=== PATIENT | female | born 1975 | race American Indian/Alaskan Native ===

== ENCOUNTER 2021-11-02 10:31 | Day surgery (SDC) | payer BC ==
[2021-10-31 12:28] LABS: Basophils % (Auto) 0.7 % (0.0-1.8); Eosinophils # (Auto) 0.2 K/mm3 (0.0-0.4); Eosinophils % (Auto) 4.3 % (0.0-4.3); Hematocrit 25.4 % (30.3-42.9); Hemoglobin 7.6 gm/dl (10.1-14.3); Lymphocytes % (Auto) 25.7 % (13.4-35.0); Mean Corpuscular HGB Conc 30 % (30-34); Monocytes # (Auto) 0.5 K/mm3 (0.0-0.8); Monocytes % (Auto) 11.7 % (0.0-7.3); Platelet Count 427 K/mm3 (140-440); Red Blood Count 4.23 M/mm3 (3.65-5.03)
[2021-10-31 12:32] LABS: Mean Corpuscular Volume 60 fl (79-97); Red Cell Distribution Width 22.1 % (13.2-15.2)
[2021-10-31 12:40] LABS: Blood Urea Nitrogen 8 mg/dL (7-17); Hemolysis Index 0
[2021-10-31 13:06] LABS: BUN/Creatinine Ratio 11
--- NOTE | 2021-10-31 15:45 | Anesthesia Consultation ---
Anesthesia Consult and Med Hx Date of service: 11/02/21 - Airway Anesthetic Teeth Evaluation: Caps, Dentures ROM Head & Neck: Adequate Mental/Hyoid Distance: Adequate Mallampati Class: Class II Intubation Access Assessment: Good - Pre-Operative Health Status ASA Pre-Surgery Classification: ASA3 Proposed Anesthetic Plan: General Nerve Block: TAP - Pulmonary Hx Smoking: Yes Hx Asthma: Yes SOB: Yes (Pt states SOB due to "anemia") Hx Sleep Apnea: No - Central Nervous System Hx Psychiatric Problems: No - Gastrointestinal Hx Gastroesophageal Reflux Disease: No - Hematic Hx Anemia: Yes (7.6) - Other Systems Hx Cancer: No Hx Obesity: No
[~2021-11-02 10:31] MED LIST: ACETAMINOPHEN 500 MG TAB PO NR; CELECOXIB 200 MG CAP PO NR; LACTATED RINGERS 1,000 ML IV SCH; MAGNESIUM OXIDE 400 MG TAB PO NR; MIDAZOLAM 2 MG/2 ML INJ IV NR; fentaNYL 100 MCG/2 ML INJ IV NR
--- NOTE | 2021-11-02 10:59 | Short Stay Summary ---
Short Stay Documentation Date of service: 11/02/21 Narrative H&P: 46y/o with symptomatic uterine fibroids and dysfunctional uterine bleeding. The patient's vaginal bleeding has resulted in iron deficiency anemia with a hgb of 7.6. She has failed medical management. Pelvic ultrasound demonstrates an enlarged fibroid uterus measuring 13cm with a dominant leiomyoma measuring 7cm. She has elected for definitive surgical management. - History Principal diagnosis: Leiomyoma Past Medical History: anemia, other (uterine fibroids) Past Surgical History: Other (D&C; liposuction) Social history: single, smoking - Allergies and Medications Current Medications: Allergies shellfish derived Allergy (Verified 10/28/21 14:35) Swelling. SOB Home Medications Medication Instructions Recorded Confirmed Last Taken Type SUMAtriptan succinate [Imitrex] 50 mg PO ONCE PRN 10/31/21 10/31/21 Unknown History Active Medications Acetaminophen (Acetaminophen 500 Mg Tab) 1,000 mg PO ONCE NR Stop: 11/02/21 20:00 Celecoxib (Celecoxib 200 Mg Cap) 400 mg PO PREOP NR Stop: 11/02/21 20:00 Fentanyl (Fentanyl 100 Mcg/2 Ml Inj) 100 mcg IV ONCE NR Stop: 11/02/21 20:00 Lactated Ringer's (Lactated Ringers) 1,000 mls @ 125 mls/hr IV DIRECT YOSHI Stop: 11/02/21 20:00 Cefazolin Sodium (Ancef/Sterile Water 2 Gm/20 Ml) 2 gm in 20 mls @ 80 mls/hr IV PREOP NR; Protocol Sodium Chloride (Nacl 0.9% 500 Ml) 500 mls @ 0 mls/hr IV ONCE ONE Stop: 11/02/21 10:54 Magnesium Oxide (Magnesium Oxide 400 Mg Tab) 400 mg PO ONCE NR Stop: 11/02/21 20:00 Methocarbamol (Methocarbamol 750 Mg Tab) 1,500 mg PO ONCE NR Stop: 11/02/21 20:00 Midazolam HCl (Midazolam 2 Mg/2 Ml Inj) 2 mg IV PREOP NR Stop: 11/02/21 23:59 - Physical exam General appearance: no acute distress Integumentary: no rash HEENT: Atraumatic Lungs: Clear to auscultation Breasts: deferred Heart: Regular rate Gastrointestinal: normal Female Genitourinary: deferred Rectal Exam: deferred Extremities: no ischemia - Brief post op/procedure progress note Date of procedure: 11/02/21 Pre-op diagnosis: Symptomatic uterine fibroids Post-op diagnosis: same Procedure: Robotic hysterectomy Bilateral salpingectomy Lysis of adhesions Anesthesia: RAMBO Surgeon: SAMI VALENTINE Estimated blood loss: other (400 mL) Pathology: list (Uterus, cervix, bilateral tubes, leiomyoma) Specimen disposition: to lab Condition: stable - Hospital course Hospital course: The patient was admitted the day of surgery underwent a robotic hysterectomy and bilateral salpingectomy. Please see operative note for details of surgery. Her postoperative course was uneventful. - Disposition Condition at discharge: Good Disposition: 01 HOME / SELF CARE / HOMELESS Short Stay Discharge Plan Activity: other (Pelvic rest for 6 weeks) Diet: regular Additional Instructions: Schedule follow-up with Dr. Valentine in 4 weeks
[2021-11-02] MEDS ORDERED: SODIUM CHLORIDE 0.9% 500 ML 500 ML IV SCH (11:00)
[2021-11-02] MEDS ORDERED: ceFAZolin/Water 2 GM/20 ML 2 GM/20 ML SYRINGE IV NR (11:00)
[2021-11-02] MEDS ORDERED: ONDANSETRON 4 MG/2 ML INJ IV PRN (11:40)
[2021-11-02] MEDS ORDERED: HYDROmorphone 0.5 MG/0.5 ML INJ IV PRN (11:40)
--- NOTE | 2021-11-02 11:40 | Anesthesia Day of Surgery ---
Anesthesia Day of Surgery - Day of Surgery Patient Examined: Yes Patient H&P Reviewed: Yes Patient is NPO: Yes
[2021-11-02] MEDS ORDERED: BUPIVACAINE/PF (0.25%) 2.5 MG/ML 30 ML VIAL INFILTRATI ONE (12:23)
[2021-11-02] MEDS ORDERED: LIDOCAINE (1%) 10 MG/1 ML VIAL 20 ML MDV ONE (12:23)
[2021-11-02] MEDS ORDERED: dexAMETHasone 4 MG/ML VIAL ONE (12:23)
[2021-11-02] MEDS ORDERED: NEOMY 40 MG/POLYMYXIN B 200,000 UNITS/ML (GU) AMPULE IR ONE ×2 (14:14→15:05)
[2021-11-02] MEDS ORDERED: propofoL 200 MG/20 ML VIAL IV ONE (14:34)
[2021-11-02] MEDS ORDERED: HYDROmorphone 1 MG/1 ML INJ ONE (14:34)
[2021-11-02] MEDS ORDERED: ROCURONIUM 50 MG/5 ML INJ IV ONE (14:34)
[2021-11-02] MEDS ORDERED: LIDOCAINE MPF (2%) 20 MG/1 ML VIAL 5 ML ONE (14:34)
[2021-11-02] MEDS ORDERED: SODIUM CHLORIDE 0.9% IRR 1,500 ML BOTTLE IR ONE (15:05)
[2021-11-02] MEDS ORDERED: SODIUM CHLORIDE 0.9% IRRIG SOLN 2000 ML IR ONE (15:06)
[2021-11-02] MEDS ORDERED: dexAMETHasone 20 MG/5 ML VIAL ONE (16:24)
[2021-11-02] MEDS ORDERED: ONDANSETRON 4 MG/2 ML INJ ONE (16:30)
[2021-11-02] MEDS ORDERED: NEOSTIGMINE 10MG/10 ML INJ MDV ONE (16:30)
[2021-11-02] MEDS ORDERED: GLYCOPYRROLATE 0.4 MG/2 ML INJ ONE (16:30)
[2021-11-02] MEDS ORDERED: KETOROLAC 30 MG/1 ML INJ ONE (16:30)
--- NOTE | 2021-11-02 16:30 | Operative Report ---
Operative Report Operative Report: Date of surgery: November 02, 2021 Preoperative diagnoses: Symptomatic uterine fibroids; menorrhagia; anemia Postoperative diagnoses: Same as above Procedure: Robotic hysterectomy; bilateral salpingectomy; lysis of adhesion Surgeon: Yolanda Carreon M.D. Forepart Rasper: Chao Camacho Anesthesia: Gen. endotracheal anesthesia Estimated blood loss: 400 mL Pathology: Uterus, cervix, bilateral tubes, leiomyoma Indication: 46-year-old with symptomatic uterine fibroids and symptomatic anemia. The patient was transfused 1 unit packed red blood cells preoperatively secondary to her severe anemia. Procedure: The patient was taken to the operating room and given general endotracheal anesthesia without complication after a time out was performed confirming the surgery and identity of the patient. She was prepped and draped in a normal sterile fashion. A bivalve speculum was placed in the patient's vagina and a single-tooth tenaculum placed on the anterior lip of the cervix. The uterus was sounded with the uterine sound. A stay suture with 0-vicryl was placed at 12 o'clock on the anterior cervix. A [employer] uterine manipulator was placed in the bivalve speculum was then removed. A warm laparotomy sponge was placed in the vagina. Attention was then turned to the patient's abdomen where a 12millimeter supra umbilical skin incision was then made. A Veress needle was placed and peritoneal entry was verified water-filled syringe. Insufflation of the peritoneal cavity was performed with CO2 gas. The 12 mm trocar was then placed under direct visualization. An additional 8 mm robotic trocar was placed on the patient's left and right lateral side just opposite of the supraumbilical trocar. An additional 5 mm right lateral trocar was then placed as the accessory port. The supraumbilical 12 mm trocar site was closed with the Pool Mcwilliams device and 0-vicryl suture. The patient was then placed in steep Trendelenburg. The [employer] robot was then engaged. A fenestrated forcep was placed in arm 2 and a vessel sealer was placed in arm 1. General survey of the abdomen pelvis revealed omental adhesions to the anterior abdominal wall. Markedly enlarged fibroid uterus. the surgeon then transferred to the surgical console. Lysis of adhesions of the omentum to the anterior abdominal wall was performed to improve visualization. The mesosalpinx was then isolated on the right. The vessel sealer was used to coagulate the mesosalpinx which was then transected. The tube was transected from the ovary. The tubo-ovarian ligament was then coagulated and transected. The round ligament was then coagulated and transected also. The vesicouterine peritoneum was then entered from the patient's right side. The uterine vessels were then coagulated with the vessel sealer. The vessels were then transected . Attention was then turned to the patient's left side where the tubo-ovarian ligament and mesosalpinx were again isolated coagulated and transected. The vesical peritoneum was then entered from the left and joined in the midline. Peritoneum was reflected off of the lower uterine segment. Uterine vessels were then coagulated and then transected. The blood supply to the uterus was adequately contained, a posterior colpotomy was made. The V care ring was visualized. Posterior colpotomy was created with the monopolar scissors. A myomectomy was performed to remove the dominant leiomyoma to compress the size of the uterus. The incision was continued circumferentially until anterior colpotomy was made. The cervix and uterus were amputated from the vaginal cuff. The uterus was then removed along with the tubes bilaterally through the vagina and a warm laparotomy sponge was placed and maintain the pneumoperitoneum. The vaginal cuff was then closed in a running fashion with V lock suture. Irrigation of the pelvis was performed. Surgicel powder was applied to the incision. The [employer] robot was undocked. The trocars were removed and the insuffliation was released. The skin was then reapproximated with 4-0 Monocryl. The tissue was sent to pathology which included the cervix, leiomyoma, bilateral tubes and uterus. The patient was then successfully extubated. She was then taken to the recovery room in stable condition. All sponge laps and needle counts were correct x2.
[2021-11-02] MEDS ORDERED: LACTATED RINGERS 1,000 ML ONE (16:46)
[2021-11-02] MEDS: HYDROmorphone 0.5 MG/0.5 ML INJ IV PRN ×2 (17:13→17:23)
--- NOTE | 2021-11-02 19:12 | Post Anesthesia Evaluation ---
- Post Anesthesia Evaluation Patient Participated: Yes Airway Patent: Yes Stable Respiratory Function: Yes Nausea/Vomiting: No Temp > 96.8F: Yes Pain Manageable: Yes Adequeate Hydration: Yes Anesthesia Complications: No Block Receding Appropriately: Yes Patient on Ventilator: No
[2021-11-02] MEDS ORDERED: D5W/LACTATED RINGERS 1,000 ML IV ONE (20:28)
[2021-11-02 21:34] VITALS: BP 135/83
== END 2021-11-02 21:30 | disposition home or self-care (01) ==
LOC: OR 10:31
PROVIDERS: ATTEND Obstetrics & Gynecology
DX: N92.0 Excessive and frequent menstruation with regular cycle (principal); D64.9 Anemia, unspecified; D25.9 Leiomyoma of uterus, unspecified; F17.210 Nicotine dependence, cigarettes, uncomplicated; G43.909 Migraine, unspecified, not intractable, without status migrainosus; J45.909 Unspecified asthma, uncomplicated; Z20.822 Contact with and (suspected) exposure to COVID-19; Z79.899 Other long term (current) drug therapy; Z91.013 Allergy to seafood; Z98.890 Other specified postprocedural states
CPT/HCPCS: 36415; 58554; 64488; 80048; 84703; 85025; 86850; 86900; 86901; 86920; 88307; J0690; J1100; J1170; J1815; J1885; J2250; J2405; J2704; J2710; J3010; J3490; J7040; J7120; J7121; P9016; S2900; U0003; 64450; J7060